=== PATIENT | female | born 1980 | race Caucasian/White ===

== ENCOUNTER 2020-08-07 18:04 | Inpatient (IN) | payer OTHER ==
[~2020-08-07] VITALS: Ht 167.6 cm; Wt 90.7 kg
[2020-08-07] MEDS ORDERED: MORPHINE SULFATE 4 MG/ML CPJ (NOT FOR IM USE) IV STA (18:39)
[2020-08-07] MEDS ORDERED: ACETAMINOPHEN 325MG TABLET PO STA (18:39)
[2020-08-07] MEDS ORDERED: SODIUM CHLORIDE 0.9% 1,000 ML IV ONE (18:45)
[2020-08-07 18:59] LABS: BASOPHILS % 0.3 % (0.0-2.0); EOSINOPHILS % 1.3 % (0.0-5.0); HEMOGLOBIN. 10.2 g/dL (12.0-16.0); LYMPHOCYTES % 19.1 % (20.0-50.0); MEAN CORPUSCULAR HEMOGLOBIN 23.9 pg (28.0-32.0); MEAN CORPUSCULAR VOLUME 72.7 fL (81.0-99.0); MEAN PLATELET VOLUME 9.1 fl (7.4-10.4); MONOCYTES % 5.7 % (2.0-8.0); NEUTROPHILS % 73.6 % (40.0-76.0); PLATELET 270 x1000/uL (130-400); RED BLOOD CELL COUNT 4.26 mill/uL (4.2-5.4)
[2020-08-07 19:07] LABS: CHLORIDE 105 mEq/L (98-107)
[2020-08-07 19:12] LABS: HCG SCREEN NEGATIVE
[2020-08-07] MEDS ORDERED: KETOROLAC 15MG/ML VIAL IV ONE (22:00)
[2020-08-07] MEDS ORDERED: MORPHINE SULFATE 4 MG/ML CPJ (NOT FOR IM USE) IV ONE (23:45)
[2020-08-08] MEDS ORDERED: MORPHINE SULFATE 2 MG/ML CPJ (NOT FOR IM USE) IV PRN (03:45)
[2020-08-08] MEDS ORDERED: HYDROCODONE/ACETAMINOPHEN 5/325MG TABLET PO PRN (03:45)
[2020-08-08 04:00] VITALS: BP 125/76
[2020-08-08] MEDS ORDERED: HYDR-4001 MT (08:08)
[2020-08-08 15:44] VITALS: BP 140/86
[2020-08-08 16:20] VITALS: BP 140/86
== END 2020-08-08 17:25 | disposition home or self-care (01) | DRG 563 ==
LOC: ER 18:04 → 6EST 23:54 → ENRESERV 08-08 02:11
PROVIDERS: ADMIT Internal Medicine; ATTEND Internal Medicine
PROC: 2W3BX1Z Immobilization of Left Upper Arm using Splint (ICD-10-PCS; principal; 2020-08-07)
DX: S42.492A Other displaced fracture of lower end of left humerus, initial encounter for closed fracture (principal); W18.39XA Other fall on same level, initial encounter; Y93.89 Activity, other specified; Y92.89 Other specified places as the place of occurrence of the external cause; Y99.8 Other external cause status; D64.9 Anemia, unspecified
CPT/HCPCS: 36415; 73060; 73070; 73090; 73120; 80053; 84703; 85025; 99285; J1885; J2270; J7030